=== PATIENT | female | born 1945 | race Two or more races ===

== ENCOUNTER 2017-05-12 00:18 | Inpatient (IN) | payer MEDICARE, BC ==
[~2017-05-12] VITALS: Ht 157.5 cm; Wt 52.6 kg
--- NOTE | 2017-05-12 00:20 | NUR ---
71 YO FEMALE BIBA#121 FROM HOME, PT C/O FEELING WEAK AND WAS FOUND ON BATHROOM. PATIENT IS A/O X 3, ASSISTED TO ER BED. PATIENT WAS GOWNED,PLACE DON ASH KIER BOILER. SKIN WARM AND DRY, RESP EVEN AND UNLABORED. AWAITING ORDERS FROM PROVIDER, WILL CONTINUE TO MONITOR
[2017-05-12] MEDS ORDERED: IV NS 0.9% 1,000 ML BAG IV ONE ×2 (01:00→02:30)
[2017-05-12 01:49] LABS: BASOPHILS % (AUTO) 0.3 % (0.0-2.0); EOSINOPHILS % (AUTO) 0.4 % (0.0-6.0); HEMATOCRIT 41 % (33-45); HEMOGLOBIN 14.3 g/dL (11.5-14.8); LYMPHOCYTES # (AUTO) 0.8 /CMM (0.8-4.8); LYMPHOCYTES % (AUTO) 33.2 % (20.0-44.0); MEAN CORPUSCULAR HEMOGLOBIN 32 PG (26.0-33.0); MEAN CORPUSCULAR HGB CONC 35 g/dl (31.0-36.0); MEAN CORPUSCULAR VOLUME 94 fL (82-100); MONOCYTES # (AUTO) 0.2 /CMM (0.1-1.30); MONOCYTES % (AUTO) 8.5 % (2.0-12.0); NEUTROPHILS # (AUTO) 1.5 /CMM (1.8-8.9); NEUTROPHILS % (AUTO) 57.6 % (43.0-81.0); PLATELET COUNT (AUTO) 88 /CMM (150-450); RDW COEFFICIENT OF VARIATION 11.8 (11.5-15.0); RED BLOOD CELL COUNT(AUTO) 4.42 MIL/uL (4.0-5.2); WHITE BLOOD COUNT (AUTO) 2.6 K/uL (4.3-11.0)
[2017-05-12 02:01] LABS: CALCIUM, SERUM 8.8 mg/dL (8.5-10.1); CARBON DIOXIDE 28 mmol/L (21-32); CHLORIDE 99 mmol/L (98-107); CREATININE 0.8 mg/dL (0.6-1.3); GLUCOSE 128 mg/dL (74-106); POTASSIUM 3.4 mmol/L (3.5-5.1); SODIUM SERUM 139 mmol/L (136-145); UREA NITROGEN, BLOOD 11 mg/dL (7-18)
[2017-05-12 02:04] LABS: INR 0.94 (0.87-1.13); PROTHROMBIN TIME 9.8 SECS (9.5-12.7)
[2017-05-12 02:07] LABS: TROPONIN I < 0.017 ng/mL (0.00-0.056)
[2017-05-12 02:09] LABS: ALANINE AMINOTRANSFERASE 38 U/L (12-78); ALBUMIN 3.8 g/dL (3.4-5.0); ALKALINE PHOSPHATASE 70 U/L (46-116); ASPARTATE AMINOTRANSFERASE 50 U/L (15-37); BILIRUBIN,DIRECT 0.1 mg/dL (0.0-0.2); BILIRUBIN,TOTAL 0.5 mg/dL (0.2-1.0); TOTAL PROTEIN, SERUM 7.7 g/dL (6.4-8.2)
[2017-05-12 02:17] LABS: LYMPHOCYTES % (MANUAL) 30 % (16-48); MONOCYTES % (MANUAL) 7 % (0-11.0); NEUTROPHILS % (MANUAL) 63 (42-76)
[2017-05-12 03:17] LABS: APPEARANCE,URINE CLEAR (CLEAR); BILIRUBIN,URINE NEGATIVE (NEGATIVE); BLOOD, URINE NEGATIVE Ery/uL (NEGATIVE); COLOR,URINE YELLOW (YELLOW); KETONES,URINE NEGATIVE (NEGATIVE); LEUKOCYTE ESTERASE ,URINE NEGATIVE (NEGATIVE); NITRITE, URINE NEGATIVE (NEGATIVE); PH,URINE 7.5 (5.0-8.0); PROTEIN,URINE NEGATIVE (NEGATIVE); UGLUCOSE NEGATIVE (NEGATIVE); UROBILINOGEN,URINE 0.2 EU/dL (0.2)
[2017-05-12] MEDS ORDERED: DILTIAZEM HCL 50 MG IV ONE (03:52)
[2017-05-12] MEDS ORDERED: DILTIAZEM HCL 50 MG IV IV ONE ×2 (04:00→05:30)
[2017-05-12] MEDS ORDERED: DILTIAZEM HCL 25 MG IV IV PRN (04:00)
[2017-05-12] MEDS ORDERED: MAGNESIUM HYDROXIDE 30 ML UDC PO PRN (04:00)
[2017-05-12] MEDS ORDERED: ZOLPIDEM TARTRATE 5 MG TABLET PO PRN (04:00)
[2017-05-12] MEDS ORDERED: MAG HYDROX/AL HYDROX/SIMETH 30 ML UDC PO PRN (04:00)
[2017-05-12] MEDS ORDERED: ONDANSETRON HCL/PF 4 MG/2 ML VIAL IVP PRN (04:00)
[2017-05-12] MEDS ORDERED: ACETAMINOPHEN 325 MG TABLET PO PRN (04:00)
[2017-05-12] MEDS ORDERED: HYDROCODONE/APAP 5/325MG 1 EACH TABLET PO PRN (04:00)
[2017-05-12] MEDS ORDERED: Z GUARD REMEDY 2 OZ OINT TP PRN (04:00)
[2017-05-12] MEDS ORDERED: DILTIAZEM HCL 25 MG IV ONE (05:31)
--- NOTE | 2017-05-12 05:41 | NUR ---
PATIENT IS RESTINTG IN ER BED, NO DISTRESS NOTED, SKIN WARM AND DRY, WILL CONTINUE TO MONITOR
--- NOTE | 2017-05-12 07:03 | NUR ---
VITAL SIGNS UPDATED.
--- NOTE | 2017-05-12 12:50 | NUR ---
REPORT GIVEN TO KEVIN COLLADO TELE [phone]
[2017-05-12 13:00] VITALS: BP 122/66
--- NOTE | 2017-05-12 13:00 | NUR ---
RN NOTES: PATIENT ADMITTED TO UNIT FROM ER. PATIENT STABLE. VS WNL. NONLABORED BREATHING NOTED ON ROOM AIR, PATIENT DENIES CHEST PAIN. DENIES NAUSEA AT THE MOMENT. IV SITE ON LEFT FA 18 PATENT AND INTACT. BED IN LOWEST LOCKED POSITION. CALL LIGHT WITHIN REACH. PATIENT SINUS BELKYS ON MONITOR
[2017-05-12] MEDS ORDERED: POTASSIUM CHLORIDE 20 MEQ TAB.PRT.SR PO SCH (15:00)
--- NOTE | 2017-05-12 15:55 | NUR ---
RN NOTES: DR TOPETE ORDERED D5NS AT 100ML/HOUR
[2017-05-12] MEDS ORDERED: IV D5/ 0.9% NACL 1,000 ML IV PRN (16:00)
[2017-05-12 16:03] LABS: MAGNESIUM 1.6 mg/dL (1.8-2.4); PHOSPHORUS 3.8 mg/dL (2.5-4.9)
[2017-05-12 18:33] LABS: THYROID STIMULATING HORMONE 2.768 uIU/mL (0.358-3.74)
[2017-05-12] MEDS: Magnesium 1GM/D5W 100ML PREMIX 100 ML IV SCH ×2 (19:05→21:34)
--- NOTE | 2017-05-12 19:40 | NUR ---
RN NOTES: PATIENT STABLE. VS WNL. NONLABORED BREATHING NOTED ON ROOM AIR, PATIENT DENIES CHEST PAIN. ADMINISTERED ZOFRAN PRN AND PATIENT STATING THAT SHE IS FEELING BETTER. IV SITE ON LEFT FA 18 PATENT AND INTACT WITH MAG REPLACEMENT RUNNING.BED IN LOWEST LOCKED POSITION. CALL LIGHT WITHIN REACH. PATIENT SINUS BELKYS ON MONITOR
--- NOTE | 2017-05-12 19:41 | NUR ---
RN OPENING NOTES RECEIVED REPORT FROM STACY RNTOBIAS. FOUND Pt AWAKE, RESTING IN BED. NO S/S OF ACUTE DISTRESS OR SOB NOTED. FAMILY VISITING AT BEDSIDE. Pt IS A/OX3, VERBAL, ABLE TO MAKE NEEDS KNOWN. ON TELE. IV ACCESS ON LFA #18, IVF D5NS @100ML/HR. SAFETY MEASURES IN PLACE. BED LOW, LOCKED, HOB ELEVATED, SIDE RAILS UP, CALL LIGHT AND BED SIDE TABLE WITHIN REACH. WILL CONTINUE TO MONITOR Pt THROUGHOUT THE NIGHT FOR SAFETY.
[2017-05-12 20:00] VITALS: BP 124/62
[2017-05-12 23:56] VITALS: BP 118/55
[2017-05-13 04:00] VITALS: BP 125/66
[2017-05-13 06:40] LABS: BASOPHILS % (AUTO) 0.6 % (0.0-2.0); EOSINOPHILS % (AUTO) 0.8 % (0.0-6.0); HEMATOCRIT 35 % (33-45); HEMOGLOBIN 12.2 g/dL (11.5-14.8); LYMPHOCYTES # (AUTO) 1.6 /CMM (0.8-4.8); LYMPHOCYTES % (AUTO) 54.7 % (20.0-44.0); MEAN CORPUSCULAR HEMOGLOBIN 33 PG (26.0-33.0); MEAN CORPUSCULAR HGB CONC 35 g/dl (31.0-36.0); MEAN CORPUSCULAR VOLUME 95 fL (82-100); MONOCYTES # (AUTO) 0.3 /CMM (0.1-1.30); MONOCYTES % (AUTO) 10.9 % (2.0-12.0); PLATELET COUNT (AUTO) 84 /CMM (150-450); RDW COEFFICIENT OF VARIATION 12.1 (11.5-15.0); RED BLOOD CELL COUNT(AUTO) 3.72 MIL/uL (4.0-5.2); WHITE BLOOD COUNT (AUTO) 2.9 K/uL (4.3-11.0)
--- NOTE | 2017-05-13 06:40 | NUR ---
RN CLOSING NOTES NO SIGNIFICANT CHANGES IN Pt's CONDITION THROUGHOUT THE NIGHT. Pt REMAINS STABLE AT THIS TIME. NO S/S OF ACUTE DISTRESS OR SOB NOTED DURING SHIFT. ALL NEEDS MET AND ATTENDED TO. SAFETY MEASURES IN PLACE. TELE READING SB 47 WITH ARRHYTHMIAS. WILL ENDORSE TO DAYSHIFT RN FOR Pt's HANDY.
[2017-05-13 06:59] VITALS: BP 133/71
[2017-05-13 07:03] LABS: ALANINE AMINOTRANSFERASE 39 U/L (12-78); ALBUMIN 2.7 g/dL (3.4-5.0); ALKALINE PHOSPHATASE 51 U/L (46-116); ASPARTATE AMINOTRANSFERASE 51 U/L (15-37); BILIRUBIN,TOTAL 0.4 mg/dL (0.2-1.0); CALCIUM, SERUM 8.1 mg/dL (8.5-10.1); CARBON DIOXIDE 28 mmol/L (21-32); CHLORIDE 108 mmol/L (98-107); CREATININE 0.7 mg/dL (0.6-1.3); GLUCOSE 94 mg/dL (74-106); MAGNESIUM 2.1 mg/dL (1.8-2.4); PHOSPHORUS 3.2 mg/dL (2.5-4.9); POTASSIUM 4.2 mmol/L (3.5-5.1); SODIUM SERUM 142 mmol/L (136-145); UREA NITROGEN, BLOOD 8 mg/dL (7-18)
[2017-05-13 07:21] LABS: TROPONIN I 0.049 ng/mL (0.00-0.056)
[2017-05-13 07:23] LABS: EOSINOPHILS % (MANUAL) 1 % (0-4); LYMPHOCYTES % (MANUAL) 54 % (16-48); MONOCYTES % (MANUAL) 5 % (0-11.0); NEUTROPHILS % (MANUAL) 40 (42-76)
--- NOTE | 2017-05-13 07:45 | NUR ---
INSURANCE BUSINESS ANALYST OPENING NOTE PATIENT IS ALERT AND ORIENTED x3. NO PAIN AT THIS TIME. NO SOB OR DISTRESS NOTED. CALL LIGHT WITHIN REACH. SAFETY MEASURES IMPLEMENTED. ABLE TO COMMUNICATE NEEDS. IV ON LEFT FOREARM INTACT AND PATENT NO REDNESS OR SWELLING NOTED, IV FLUIDS RUNNING AT THIS TIME. WILL CONTINUE TO MONITOR THROUGHOUT SHIFT
[2017-05-13 08:00] VITALS: BP 133/71
--- NOTE | 2017-05-13 11:08 | NUR ---
COMMISSION CLERK NOTE PATIENT IS ALERT AND ORIENTED x3. NO PAIN AT THIS TIME. NO SOB OR DISTRESS NOTED. CALL LIGHT WITHIN REACH AT ALL TIMES. SAFETY MEASURES IMPLEMENTED. ALL NURSING CARE NEEDS ATTENDED TO NEEDED. AMBULATORY. ALL BELONGINGS WITH PATIENT UPON DISCHARGE. ALL NURSING INSTRUCTIONS GIVEN TO PATIENT AND AT BEDSIDE, TEACH BACK RECEIVED. IV REMOVED, SKIN INTACT. LEFT VIA PRIVATE CAR WITH .
== END 2017-05-13 11:00 | disposition home or self-care (01) | DRG 865 ==
LOC: ER 00:20 → OBSER 07:59 → TELE 12:44 → MED 05-13 09:08
PROVIDERS: ADMIT Nurse Practitioner Acute Care; ATTEND Nurse Practitioner Acute Care
DX: B34.9 Viral infection, unspecified (principal); I21.A1 Myocardial infarction type 2; D69.6 Thrombocytopenia, unspecified; I10 Essential (primary) hypertension; I48.91 Unspecified atrial fibrillation; E87.6 Hypokalemia; R42 Dizziness and giddiness; D70.9 Neutropenia, unspecified
CPT/HCPCS: 36415; 71045-TC; 80048-TC; 80053-TC; 80076-TC; 81000-TC; 82306; 83605-TC; 83735-TC; 84100-TC; 84439-TC; 84443-TC; 84484-TC; 85025-TC; 85730-TC; 87040-TC; 87081-TC; 87086-TC; 87400; A4606; J2405; J3475; J3490; J7030; J7042; J7050; Z7610